=== PATIENT | male | born 1945 | race Caucasian/White ===

== ENCOUNTER 2020-05-09 15:02 | Emergency (ER) | payer MEDICARE, OTHER ==
[~2020-05-09 15:02] MED LIST: BENTYL 10MG CAP10 MG PO; CLINDAMYCIN HC300 MG PO; COLACE 100MG C100 MG PO; NORCO 5-325 TA1 EACH PO; PROTONIX40 MG PO; VITAMIN D 40400 UNIT PO; ZOFRAN ODT 4 MG4 MG SL
[2020-05-09 16:15] LABS: HEMOGLOBIN 15.1 gm/dl (14.0-17.5); RED BLOOD COUNT 5.42 M/UL (4.20-5.50)
[2020-05-09 16:31] LABS: BUN/CREATININE RATIO 8 (0-10)
== END 2020-05-09 19:17 | disposition home or self-care (01) ==
LOC: ER1 15:02
PROVIDERS: Emergency Medicine
DX: R10.32 Left lower quadrant pain (principal); Z90.49 Acquired absence of other specified parts of digestive tract; Z98.890 Other specified postprocedural states; Z88.4 Allergy status to anesthetic agent
CPT/HCPCS: 36415; 80053; 81001; 83605; 83690; 85025; 96374; 99284; J2405; Q9967

== ENCOUNTER → 2020-10-11 | Outpatient (CLI) | payer MEDICARE | LOC: MRI 07:58 | DX: M96.1 Postlaminectomy syndrome, not elsewhere classified (principal); M51.26 Other intervertebral disc displacement, lumbar region; M43.8X6 Other specified deforming dorsopathies, lumbar region; M50.21 Other cervical disc displacement, high cervical region | CPT/HCPCS: 72141; 72148; 73522 ==

== ENCOUNTER → 2021-01-06 | Outpatient (CLI) | payer MEDICARE | LOC: SLEEP-COR 10:26 → SLEEP 21:30 | DX: G47.30 Sleep apnea, unspecified (principal) | CPT/HCPCS: 95810 ==

== ENCOUNTER 2021-02-09 20:05 | Emergency (ER) | payer MEDICARE, OTHER ==
[2021-02-09 21:38] LABS: HEMOGLOBIN 14.5 gm/dl (14.0-17.5); RED BLOOD COUNT 4.92 M/UL (4.20-5.50); WHITE BLOOD COUNT 9.2 K/UL (4.5-11.0)
[2021-02-09 21:58] LABS: BUN/CREATININE RATIO 13 (0-10)
== END 2021-02-09 23:48 | disposition home or self-care (01) ==
LOC: ER1 20:05
PROVIDERS: Physician Assistant
DX: R33.9 Retention of urine, unspecified (principal); E78.5 Hyperlipidemia, unspecified; I10 Essential (primary) hypertension; J44.9 Chronic obstructive pulmonary disease, unspecified; G47.30 Sleep apnea, unspecified; Z85.828 Personal history of other malignant neoplasm of skin; Z90.49 Acquired absence of other specified parts of digestive tract
CPT/HCPCS: 51702; 80053; 81001; 85025; 99283

== ENCOUNTER 2021-03-06 14:13 | Emergency (ER) | payer MEDICARE, OTHER ==
[2021-03-06 15:09] LABS: HEMOGLOBIN 13.7 gm/dl (14.0-17.5); RED BLOOD COUNT 4.71 M/UL (4.20-5.50); WHITE BLOOD COUNT 10.3 K/UL (4.5-11.0)
[2021-03-06 15:21] LABS: BUN/CREATININE RATIO 12 (0-10)
== END 2021-03-06 16:05 | disposition home or self-care (01) ==
LOC: ER1 14:13
PROVIDERS: Emergency Medicine
DX: R33.9 Retention of urine, unspecified (principal); I10 Essential (primary) hypertension
CPT/HCPCS: 80048; 81001; 85025; 99283

== ENCOUNTER 2021-03-12 10:29 | Emergency (ER) | payer OTHER ==
[2021-03-12 11:56] LABS: HEMOGLOBIN 14.4 gm/dl (14.0-17.5); RED BLOOD COUNT 4.94 M/UL (4.20-5.50); WHITE BLOOD COUNT 5.5 K/UL (4.5-11.0)
[2021-03-12 12:23] LABS: BUN/CREATININE RATIO 8 (0-10)
== END 2021-03-12 14:15 | disposition home or self-care (01) ==
LOC: ER1 10:29
PROVIDERS: Physician Assistant
DX: N40.1 Benign prostatic hyperplasia with lower urinary tract symptoms (principal); R33.9 Retention of urine, unspecified; I10 Essential (primary) hypertension
CPT/HCPCS: 51702; 80053; 81001; 85025; 99283

== ENCOUNTER 2021-05-29 13:49 | Emergency (ER) | payer OTHER ==
[2021-05-29 14:54] LABS: HEMOGLOBIN 14.4 gm/dl (14.0-17.5); RED BLOOD COUNT 4.87 M/UL (4.20-5.50); WHITE BLOOD COUNT 4.8 K/UL (4.5-11.0)
[2021-05-29 15:29] LABS: BUN/CREATININE RATIO 9 (0-10)
[2021-05-29] MEDS ORDERED: ZOFRAN ODT 4 MG4 MG SL (15:40)
== END 2021-05-29 16:10 | disposition home or self-care (01) ==
LOC: ER1 13:49
PROVIDERS: Emergency Medicine
DX: E86.0 Dehydration (principal); R11.0 Nausea; J44.9 Chronic obstructive pulmonary disease, unspecified; I10 Essential (primary) hypertension
CPT/HCPCS: 80053; 82550; 82553; 83690; 83874; 84484; 85025; 93005; 96374; 99284; J2405

== ENCOUNTER 2021-07-22 17:20 | Emergency (ER) | payer OTHER ==
[2021-07-22 20:12] LABS: HEMOGLOBIN 13.2 gm/dl (14.0-17.5); RED BLOOD COUNT 4.46 M/UL (4.20-5.50); WHITE BLOOD COUNT 4.2 K/UL (4.5-11.0)
[2021-07-22 20:32] LABS: BUN/CREATININE RATIO 10 (0-10)
== END 2021-07-22 23:07 | disposition home or self-care (01) ==
LOC: ER1 17:20
PROVIDERS: Family Medicine
DX: K91.2 Postsurgical malabsorption, not elsewhere classified (principal); E86.0 Dehydration
CPT/HCPCS: 80053; 81001; 83690; 85025; 96374; 99284; J2405